=== PATIENT | female | born 1990 | race African-American/Black ===

== ENCOUNTER 2022-08-05 09:44 | Emergency (ER) | payer OTHER ==
[~2022-08-05] VITALS: Ht 165.1 cm; Wt 52.2 kg
[2022-08-05 11:53] LABS: BILIRUBIN Negative (Negative); BLOOD Negative (Negative); CLARITY Cloudy (Clear); COLOR Yellow (Yellow); GLUCOSE Negative (Negative); KETONE Negative (Negative); LEUKO ESTERASE 1+ (Negative); NITRITE Negative (Negative); UROBILINOGEN 0.2 E.U./dl (0.0-1.0)
[2022-08-05 12:10] LABS: EPITHELIAL CELLS 21-30
[2022-08-05 12:12] LABS: BACTERIA 2+; RBC 0-2 rbc/hpf (0-2)
[2022-08-05] MEDS ORDERED: CYCLOBENZAPRINE5 M3 PO (13:40)
[2022-08-05] MEDS ORDERED: PREDNISONE50 MG PO (13:40)
[2022-08-05] MEDS ORDERED: CEPHALEXIN500 M1 PO (13:40)
== END 2022-08-05 14:15 | disposition home or self-care (01) ==
LOC: ED 09:44
PROVIDERS: Student in an Organized Health Care Education/Training Program
DX: N39.0 Urinary tract infection, site not specified (principal); M54.41 Lumbago with sciatica, right side; M54.42 Lumbago with sciatica, left side